=== PATIENT | male | born 1950 | race Caucasian/White ===

== ENCOUNTER 2017-01-11 14:45 | Inpatient (IN) ==
--- NOTE | 2017-01-11 15:51 | EKG Report ---
Test Performed on : 01/11/2017 3:40:26 PM Test Reason : sob Blood Pressure : / mmHG Vent. Rate : 088 BPM Atrial Rate : 088 BPM P-R Int : 204 ms QRS Dur : 100 ms QT Int : 404 ms P-R-T Axes : 025 -08 088 degrees QTc Int : 488 ms Normal sinus rhythm. Nonspecific T wave abnormality Prolonged QT Abnormal ECG When compared with ECG of 07-AUG-2015 22:39, Nonspecific T wave abnormality no longer evident in Inferior leads Unconfirmed Result
[2017-01-11] MEDS ORDERED: ASPIRIN PO STA (16:12)
--- NOTE | 2017-01-11 16:33 | Diag Imaging Result Doc PS360 ---
EXAM: CHEST-PORTABLE HISTORY: sob/cp TECHNIQUE: Portable upright AP COMPARISON: 08/12/2015 FINDINGS: The heart remains enlarged. There is a small to moderate-sized right-sided pleural effusion similar to the prior study. Pulmonary vessels aren't distended. There is basilar atelectasis. IMPRESSION: Cardiomegaly with pulmonary edema and a right-sided effusion consistent with congestive failure. Electronically signed by Weston Nunez 01/11/2017 4:31 PM
[2017-01-11 16:35] LABS: MANUAL DIFF NEEDED? NO
[2017-01-11 16:48] LABS: BASO% 1.5 % (0.0-0.8); EOS# 1.14 X1000 (0.0-0.7); HEMATOCRIT 38.6 % (42.0-52.0); HEMOGLOBIN 12.6 g/dL (14.0-18.0); LYMPH# 0.64 X1000 (1.2-3.4); LYMPH% 6.8 % (20.5-51.1); MCH 29.5 PG (27-31); MCHC 32.6 g/dL (33-37); MCV 90.4 FL (81-99); MONO# 0.72 X1000 (0.11-0.59); MONO% 7.6 % (1.7-9.3); MPV 8.9 FL (7.4-10.4); NEUT% 72.1 % (42.2-75.2); PLT 266 X1000 (130-400); RBC 4.27 XMIL (4.7-6.1)
[2017-01-11 16:56] LABS: INR 1.11; PROTIME 11.7 Seconds (9.2-11.7)
[2017-01-11 17:13] LABS: ALBUMIN 3.8 g/dL (3.5-5.0); POTASSIUM 4.5 mmol/L (3.5-5.1); TOTAL BILIRUBIN 0.76 mg/dL (0.20-1.00); TOTAL PROTEIN 7.3 g/dL (6.3-8.3)
--- NOTE | 2017-01-11 17:30 | PROVIDER DOCUMENTATION ---
This chart was entered by Matthew Canseco Scribe, acting as scribe for Dragan Wallace MD. HPI-Respiratory General - General Chief Complaint: Shortness of Breath Stated Complaint: FLUID RETENTION Time Seen by Provider: 01/11/17 15:55 Source: patient Allergies/Adverse Reactions: Patient Allergies Allergy/AdvReac Type Severity Reaction Status Date / Time No Known Allergies Allergy Verified 04/01/15 10:22 Home Medications: Home Medication List Medication Instructions Recorded Confirmed Last Taken Type Aspirin 81 mg PO DAILY 11/04/13 04/03/15 04/03/15 06:00 History Captopril 50 mg PO TID 11/04/13 04/03/15 04/03/15 06:00 History Clonidine [Catapres] 0.2 mg PO TID 11/04/13 04/03/15 04/03/15 06:00 History Hydroxyzine HCl 25 mg PO DAILY 11/04/13 04/03/15 04/02/15 08:00 History [place]-3 Fatty Acids [Fish Oil] 1 tab PO DAILY 11/04/13 04/03/15 04/02/15 08:00 History PRAVAstatin [Pravachol] 40 mg PO DAILY 11/04/13 04/03/15 04/02/15 08:00 History Sevelamer Carbonate [Renvela] 1,600 mg PO TID 02/11/14 04/03/15 04/02/15 20:00 History Gabapentin 300 mg PO BID 04/01/15 04/03/15 04/02/15 20:00 History Amlodipine [Norvasc] 10 mg PO DAILY #90 tablet 08/13/15 Unknown Rx - History of Present Illness-Resp Nature of Presenting Problem: Patient is a 66 y/o M that presents with progressive shortness of breath x 5 days. Sent here by for evaluation and possible admission. patient has ESRD and does dialysis Tues, Thurs, and Sat. Has same history with fluid in lungs. No fever/chills, chest pain. Gradual weakness has occurred over the past few weeks. Quality of Pain: reports: fullness Severity in ED: reports: moderate Onset/Duration: reports: gradual, 5 days ago Timing: reports: still present, getting worse Context: denies: recent URI, sports/exercise Cough Quality/Degree: reports: moderate, productive cough Episode Frequency: frequent episodes Current Respiratory Medication Therapy: Initiated see nurses note Modifying Factors: worse with: exertion, coughing Associated Symptoms: reports: cough, shortness of breath, short of breath. denies: fever/chills, flu-like symptoms, headache, nasal congestion, nasal drainage, wheezing Similar Symptoms Previously?: Yes Recently seen or treated by another doctor?: Yes Review of Systems - Adult - REVIEW OF SYSTEMS - ADULT Constitutional: denies: chills, fever Eyes: reports: no symptoms reported Ears, Nose, Mouth & Throat: reports: no symptoms reported Cardiovascular: reports: edema. denies: chest pain, orthopnea, palpitations Respiratory: reports: cough, shortness of breath. denies: wheezing Gastrointestinal: denies: abdominal pain, diarrhea, nausea, vomiting Genitourinary: reports: no symptoms reported Musculoskeletal: reports: no symptoms reported Integumentary: reports: no symptoms reported Neurological: reports: no symptoms reported Psychiatric: reports: no symptoms reported Endocrine: reports: no symptoms reported Hematologic/Lymphatic: reports: no symptoms reported Allergic/Immunologic: reports: no symptoms reported All Other Systems: Reviewed and Negative Past History - Adult - PAST MEDICAL HISTORY-ADULT Review of Records: reports: Old Records Reviewed, Nursing Assessment Review, Medications Reviewed Cardiovascular: reports: HTN Genitourinary: reports: dialysis (T,Th, Sat), ESRD Musculoskeletal: reports: arthritis Psychiatric: reports: other (MR) Endocrine/Immune: reports: other (ESRD/ hospitalized for hypoglycemia in December/ glipizide decreased from 10 to 2.5 mg) - PRIOR SURGERIES/PROCEDURES Surgical/Procedure History: reports: indwelling device (av fistula) - IMMUNIZATION STATUS Childhood Immunizations: See Nurse Assessment Flu Vaccine: See Nurse Assessment - FAMILY HISTORY Family History: reviewed, not pertinent - SOCIAL HISTORY Smoking: non-smoker Living Situation: family Physical Exam-General - PHYSICAL EXAM-ADULT Initial Vital Signs Reviewed: Yes - CONSTITUTIONAL General Appearance: alert, mild distress, moderate distress, other (ill appearing) - EYES Eyes: PERRL/EOMI, pink conjunctivae - HEAD, EARS, NOSE, MOUTH & THROAT HENMT: normocephalic/atraumatic, moist mucous membranes, normal ENT inspection - NECK Neck: full range of motion, normal inspection - RESPIRATORY Respiratory: no respiratory distress, no accessory muscle use, rales (at bases bilateraly) - CARDIOVASCULAR Cardiovascular: regular rate, rhythm, no edema - GASTROINTESTINAL (ABDOMEN) Abdominal Exam: normal bowel sounds, non tender, soft - MUSCULOSKELETAL Extremity: normal range of motion, normal inspection, no pedal edema - SKIN Integumentary: normal color, warm/dry - NEUROLOGIC Neurologic: activity therapy specialist II-XII nml as tested, no motor/sensory deficits - PSYCHIATRIC Psych/Mental Status: normal mood/affect, normal thought content, normal thought process, oriented x 3 Progress - PLAN OF CARE/RESULTS Progress/Plan/Lab Results: Vital Signs - 8 hr 01/11/17 15:28 Temperature 97.9 F Pulse Rate 88 Respiratory Rate 20 Blood Pressure 196/86 O2 Sat by Pulse Oximetry 94 L Laboratory Results - last 24 hr 01/11/17 01/11/17 01/11/17 16:12 16:12 16:12 WBC 9.47 RBC 4.27 L Hgb 12.6 L Hct 38.6 L MCV 90.4 MCH 29.5 MCHC 32.6 L RDW Std Deviation 18.0 H Plt Count 266 MPV 8.9 Immature Gran % (Auto) 0.0 Neut % (Auto) 72.1 Lymph % (Auto) 6.8 L Wood % (Auto) 7.6 Eos % (Auto) 12.0 H Baso % (Auto) 1.5 H Immature Gran # (Auto) 0.00 Neut # (Auto) 6.83 H Lymph # (Auto) 0.64 L Wood # (Auto) 0.72 H Eos # (Auto) 1.14 H Baso # (Auto) 0.14 PT 11.7 INR 1.11 PTT (Actin FS) 28.0 Sodium 136 Potassium 4.5 Chloride 90 L Carbon Dioxide 24 L Anion Gap 22 BUN 28 H Creatinine 4.9 H Estimated GFR/1.73 m2 12 BUN/Creatinine Ratio 6 Glucose 91 Calculated Osmolality 277 Calcium 9.0 Magnesium 2.0 Total Bilirubin 0.76 AST 33 ALT 15 Alkaline Phosphatase 229 H Creatine Kinase 92 Troponin T Total Protein 7.3 Albumin 3.8 Globulin 3.5 Albumin/Globulin Ratio 1.1 01/11/17 16:12 WBC RBC Hgb Hct MCV MCH MCHC RDW Std Deviation Plt Count MPV Immature Gran % (Auto) Neut % (Auto) Lymph % (Auto) Wood % (Auto) Eos % (Auto) Baso % (Auto) Immature Gran # (Auto) Neut # (Auto) Lymph # (Auto) Wood # (Auto) Eos # (Auto) Baso # (Auto) PT INR PTT (Actin FS) Sodium Potassium Chloride Carbon Dioxide Anion Gap BUN Creatinine Estimated GFR/1.73 m2 BUN/Creatinine Ratio Glucose Calculated Osmolality Calcium Magnesium Total Bilirubin AST ALT Alkaline Phosphatase Creatine Kinase Troponin T 0.089 Total Protein Albumin Globulin Albumin/Globulin Ratio Orders Category Date Time Status Cardiac Monitoring DIRECTED Care 01/11/17 16:13 Active Oxygen Therapy- ED Nursing DIRECTED Care 01/11/17 16:13 Active Saline Loc NOW Care 01/11/17 16:13 Active CHEST-PORTABLE [RAD] Stat Exams 01/11/17 16:15 Completed CBC WITH ELECTRONIC DIFF [HEME] Stat Lab 01/11/17 16:12 Completed CK PROFILE [SP CHEM] Stat Lab 01/11/17 16:12 Completed COMPREHENSIVE METABOLIC PANEL [CHEM] Stat Lab 01/11/17 16:12 Completed MAGNESIUM [CHEM] Stat Lab 01/11/17 16:12 Completed PRO B-NATRIURETIC PEPTIDE Stat Lab 01/11/17 16:12 Received PROTIME WITH INR [COAG] Stat Lab 01/11/17 16:12 Completed PTT [COAG] Stat Lab 01/11/17 16:12 Completed TROPONIN T Stat Lab 01/11/17 16:12 Completed Aspirin Med 01/11/17 16:12 Discontinued 325 mg PO STAT STA EKG [EKG] Stat Ther 01/11/17 15:32 Draft EKG [EKG] Stat Ther 01/11/17 16:13 Ordered Result Diagrams: 01/11/17 16:12 01/11/17 16:12 - EKG 1 Time of EKG reading by physician:: 15:40 EKG Read and Signed by:: Dragan Wallace EKG Interpretation (*Must complete 3 of following elements*): Abnormal Rate: 88 Rhythm: NSR [place]: normal QRS: normal [place] Interval: normal ST Wave: non-specific ST changes - XRAY 1 XRAY Study: Chest Impression: Abnormal XRAY Interpretation: CMG with pulmonary edema and right-sided effusion - CONSULTS/PCP/HOSPITALIST Notification #1 *Consult/PCP/Hospitalist*: ( invoice control clerk for ) Time Discussed: 17:19 Reason/Comments: CHF,ESRD with dialysis Consult Disposition: Admit Departure - Departure Date of Disposition Decision: 01/11/17 (n) Time of Disposition Decision: 17:20 DIAGNOSIS: ESRD on dialysis CHF (congestive heart failure) Qualifiers: Congestive heart failure type: unspecified congestive heart failure type Congestive heart failure chronicity: unspecified congestive heart failure chronicity Qualified Code(s): I50.9 - Heart failure, unspecified Dyspnea Qualifiers: Dyspnea type: shortness of breath Qualified Code(s): R06.02 - Shortness of breath Pulmonary edema Qualifiers: Chronicity: acute Qualified Code(s): J81.0 - Acute pulmonary edema Disposition: ADMITTED INPATIENT 09 Certified Medical Emergency: Emergent Condition: Stable Referrals and Follow-Ups: Ledy Doyle MD [Primary Care Provider] - - Critical Care Note This patient required my direct & personal management of CC.: No This chart was documented by the indicated scribe, (Matthew Canseco, Scribe) and accurately reflects the services I performed and decisions made by me, Dragan Wallace MD, as attested by the provider's signature.
[2017-01-11] MEDS ORDERED: APRESOLINE IV PRN (18:26)
[2017-01-11] MEDS ORDERED: CAPTOPRIL 50 MG PO SCH (19:41)
[2017-01-11] MEDS ORDERED: SEVELAMER CARBONATE 1600 MG PO SCH (19:41)
[2017-01-11 20:27] LABS: ALLEN TEST YES; BE 3.2 mmoll (-3.0-3.0); BLOOD TYPE ARTERIAL; DRAW SITE R RADIAL; METHB 1.3 % (0.0-1.5); MODALITY CANNULA; O2(CT) 15.5 mL/dL (15.0-23.0); PCO2(98.6) 42 mmHg (35-45); PO2(98.6) 66 mmHg (60-100); SAMPLE BLOOD; SAO2 94.5 % (95.0-100.0); THB 12.1 g/dL (11.5-17.4); pH(98.6) 7.43 (7.35-7.45)
[2017-01-11] MEDS ORDERED: RENAGEL PO ONE (21:00)
[2017-01-11] MEDS ORDERED: CATAPRES PO SCH (21:00)
[2017-01-11] MEDS ORDERED: NEURONTIN PO SCH (21:00)
[2017-01-11] MEDS: NEURONTIN PO SCH (21:05)
[2017-01-11] MEDS: CATAPRES PO SCH (21:05)
[2017-01-11] MEDS: CAPOTEN PO SCH (21:05)
[2017-01-11 21:19] LABS: MANUAL DIFF NEEDED? NO
[2017-01-11 21:22] LABS: BASO% 1.8 % (0.0-0.8); EOS% 14.5 % (0.0-10.0); HEMATOCRIT 37.3 % (42.0-52.0); HEMOGLOBIN 12.3 g/dL (14.0-18.0); IMM GRAN# 0.02 X1000 (0.0-0.04); IMM GRAN% 0.2 % (0.0-0.5); LYMPH# 0.51 X1000 (1.2-3.4); LYMPH% 6.2 % (20.5-51.1); MCH 29.7 PG (27-31); MCV 90.1 FL (81-99); MONO% 7.2 % (1.7-9.3); MPV 8.4 FL (7.4-10.4); NEUT% 70.1 % (42.2-75.2); PLT 245 X1000 (130-400); RBC 4.14 XMIL (4.7-6.1)
[2017-01-11 21:29] LABS: INR 1.12; PROTIME 11.8 Seconds (9.2-11.7)
[2017-01-11 21:36] LABS: HEMOGLOBIN A1C 4.6 % (4.8-6.0)
[2017-01-11 22:19] LABS: CALCIUM 8.5 mg/dL (8.8-10.2)
--- NOTE | 2017-01-11 22:25 | HISTORY AND PHYSICAL ---
CHIEF COMPLAINT: Shortness of breath, PND, orthopnea, swelling of feet. HISTORY OF PRESENT ILLNESS: He is a 66-year-old white gentleman was evaluated in our office this afternoon with above symptoms. Patient was found to have decreased breath sounds in the right base. Chest x-ray showed moderate pleural effusion on the right side. He was admitted to the hospital with decompensated congestive heart failure. He has 2+ pedal edema. I did discuss with Dr. Kahn who is out of town. Basically admitted to the hospital for dialysis to remove fluid. Will discuss with the nurse practitioner tomorrow. PAST MEDICAL HISTORY: Type 2 diabetes, end-stage kidney disease on dialysis, acid reflux disease, hyperlipidemia, hypertension, borderline mental retardation, macular retinal degeneration, insomnia. PAST SURGICAL HISTORY: Tonsillectomy, appendectomy, status post circumcision, bilateral cataract surgery, right arm AV fistula graft. MEDICINES: Amlodipine 5 mg daily, aspirin 80 mg daily, BuSpar 10 mg p.o. b.i.d., captopril 50 mg 3 times daily, clonidine 0.2 three times daily, hydroxyzine 25 daily, Neurontin 300 three times daily, pravastatin 40 daily, Renvela 80 mg 3 times daily, Rocaltrol 0.25 mcg daily, TobraDex as needed. ALLERGIES: Not known. SOCIAL HISTORY: Single, lives with mother, disabled. FAMILY HISTORY: Mom is alive at 86-year-old, father of natural causes. REVIEW OF SYSTEMS: HEENT: No headache. No vision problem. No earache. No sore throat. Neck: No goiter. No lymphadenopathy. No bruit. Cardiopulmonary: No chest pain, shortness of breath, PND, orthopnea, swelling of feet. GI: No nausea, vomiting, abdominal pain. : No history of hesitancy, frequency. Neurological: No focal symptoms or weakness. PHYSICAL EXAMINATION: VITAL SIGNS: Is afebrile, blood pressure is slightly high, 5 feet 10, 157 pounds. HEENT: Atraumatic, normocephalic. Pupils equal, react to light. TMs are normal. Nose and throat within normal limits. JVD is elevated. LUNGS: Decreased breath sounds in the right base. HEART: Sounds are regular. BELLY: Is soft, nontender. Good bowel sounds. No masses palpable. EXTREMITIES: One plus pedal edema in both legs. AV graft is palpable in right forearm. NEURO: No obvious neurological deficits. Patient was seen in the wheelchair. INVESTIGATIONS: CBC: White cell count 8.2, hematocrit 37, platelets 245,000. PT 11, INR 1.1. ABG pH is 7.43, pCO2 42, PO2 62 on 2 L. SMA 7, sodium 136 potassium 4.5, chloride 90, BUN 28, creatinine 4.9. A1c 4.6. LFTs were normal. Alkaline phosphatase slightly high, proBNP 35,000, CK is normal. ASSESSMENT AND PLAN: 1. A 66-year-old white gentleman with a known history of hypertension, heart disease admitted to the hospital with congestive heart failure, elevated proBNP, right pleural effusion. Since he is end-stage kidney disease he needs an extra hemodialysis. Discussed with Dr. Kahn. 2. Hypertension on amlodipine, captopril, clonidine and will use hydralazine as needed. 3. Chronic anxiety on BuSpar 10 mg p.o. b.i.d. 4. Hyperlipidemia on Pravachol. 5. Hyperphosphatemia on Renagel and will follow up. cc: Jm Doyle MD
[2017-01-12 05:21] LABS: CALCIUM 8.3 mg/dL (8.8-10.2); POTASSIUM 4.3 mmol/L (3.5-5.1)
--- NOTE | 2017-01-12 06:43 | EKG Report ---
Test Performed on : 01/11/2017 8:30:39 PM Test Reason : chest pain Blood Pressure : / mmHG Vent. Rate : 086 BPM Atrial Rate : 086 BPM P-R Int : 202 ms QRS Dur : 102 ms QT Int : 406 ms P-R-T Axes : 028 007 073 degrees QTc Int : 485 ms Normal sinus rhythm. Nonspecific T wave abnormality Prolonged QT Abnormal ECG When compared with ECG of 11-JAN-2017 15:40, (Unconfirmed) No significant change was found Confirmed by Virgie Das MD ([id number]) on 01/12/2017 4:40:55 PM
[2017-01-12] MEDS ORDERED: TIGHT: 0.2 ML/HR MISC PRN (07:31)
[2017-01-12] MEDS ORDERED: NS 2,000 ML MISC PRN (07:31)
[2017-01-12] MEDS ORDERED: HEPARIN IV PRN (07:31)
[2017-01-12] MEDS ORDERED: HEPARIN ONE ×2 (08:26→13:08)
[2017-01-12] MEDS ORDERED: NS 2,000 ML ONE ×2 (08:26→13:09)
[2017-01-12] MEDS: NORVASC PO SCH (08:43)
[2017-01-12] MEDS: FISH OIL CONCENTRATE PO SCH (08:43)
[2017-01-12] MEDS: HYDROXYZINE PO SCH (08:43)
[2017-01-12] MEDS: ASPIRIN PO SCH (08:44)
[2017-01-12] MEDS: CAPOTEN PO SCH ×3 (08:44→21:30)
[2017-01-12] MEDS: CATAPRES PO SCH ×3 (08:44→21:30)
[2017-01-12] MEDS: RENAGEL PO SCH ×3 (08:45→18:00)
[2017-01-12] MEDS: NEURONTIN PO SCH ×2 (08:45→21:30)
[2017-01-12] MEDS: PRAVACHOL PO SCH (08:45)
[2017-01-12] MEDS ORDERED: PRAVACHOL PO SCH (09:00)
[2017-01-12] MEDS ORDERED: NORVASC PO SCH (09:00)
--- NOTE | 2017-01-12 11:09 | PROGRESS NOTE ---
DATE: 01/12/2017 SUBJECTIVE: The patient is resting very well and denies any shortness of breath. REVIEW OF SYSTEMS: None reported. OBJECTIVE: Vital Signs: Temperature is 97 degrees, blood pressure is 180/85, 157 pounds, on 3L nasal cannula. HEENT: Within normal limits. Chest: Decreased breath sounds in the right base. Heart: Sounds are regular. Abdomen: Belly is soft, nontender. Good bowel sounds. Extremities: 1+ pedal edema noted. INVESTIGATIONS: Chest x-ray: Right pleural effusion. Creatinine 6.0. proBNP was high. ASSESSMENT AND PLAN: 1. Congestive heart failure. Last echocardiography on 08/08/2015. Ejection fraction is 55% with significant pulmonary hypertension noted. Continue control of blood pressure and she is going to dialysis today. 2. Hypertension. Continue on Captopril, clonidine, and hydralazine as needed. 3. Hyperlipidemia, on Pravachol. 4. Diabetes, controlled with diet. LEVEL OF DOCUMENTATION: Twenty-five minutes. PLAN: I will follow up. cc: Jm Doyle MD
--- NOTE | 2017-01-12 14:55 | CONSULTATION ---
DATE OF CONSULTATION: 01/12/2017 REASON FOR ADMISSION: Increased work of breathing with swelling of feet. TIME SEEN: 809 CONSULTING PHYSICIAN: Dr. Doyle. HPI: Mr. Bartholomew is a 66-year-old white male who is known to our outpatient services for hemodialysis on Wednesday, , Wednesday at the [facility]. Patient lives with his sister and his mother. He is mentally handicapped. He does tolerate dialysis well. It is difficult for him to understand fluid restrictions. Subsequently sister is at his bedside at this time. It is indicated that he does not have any chest pain. He was found to have increased work of breathing. He was seen at Dr. Doyle's office yesterday afternoon and was forwarded to [facility] for further evaluation and workup. Chest x-ray had indicated moderate pleural effusion on the right side. He was noted to have decompensated congestive heart failure with 2+ pedal edema. We will plan for dialysis today to assist with his fluid volume load. Patient currently denies any chest pain. No increased work of breathing. No nausea, vomiting, no diarrhea. No palpitations. No fever or chills. PAST MEDICAL HISTORY: End-stage renal disease with hemodialysis on Wednesday, , Wednesday, type 2 diabetes, acid reflux, hyperlipidemia, hypertension, borderline mental handicap, macular retinal degeneration, insomnia, anemia of chronic disease, osteodystrophy of chronic disease. PREVIOUS SURGICAL HISTORY: He has had a tonsillectomy, appendectomy, status post circumcision, bilateral cataract surgery, right forearm AV fistula. SOCIAL HISTORY: Patient is single. He lives with his mother and sister. He is disabled. No alcohol, tobacco or illicit drug use. FAMILY HISTORY: Mother is fairly healthy with noted hypertension. Father of natural causes. Sister assists with his care. CURRENT ALLERGIES: No known drug allergies. HOME MEDICATIONS: Amlodipine, aspirin, BuSpar, captopril, clonidine, hydroxyzine, Neurontin, pravastatin, Renvela, Rocaltrol, TobraDex, patient also receives , Aranesp and IV iron as indicated at the outpatient clinic. VITAL SIGNS: Temperature 98.4 degrees, blood pressure 184/87, heart rate 82, respirations 18. He is on 2 L nasal cannula. Last recorded saturation is 94%. He has had 360 in. He has had 0 out. LAB: Sodium 138, potassium 4.3, chloride 93, CO2 27, BUN 36, creatinine 6, glucose 101, anion gap 18, calcium 8.3, albumin 3.8, TSH 3.73. White count 8.29, hemoglobin 12.3, hematocrit 37.3 with a platelet count of 245,000. His PT is 118, INR 1.12, PTT 28.0. BNP greater than 35,000. ABGs pH 7.43, CO2 42, PO2 66, bicarb 27.3 on 2 L. Chest x-ray as mentioned above. PHYSICAL EXAMINATION: General: This is a 66-year-old white male. He is currently resting in bed. He is in no acute distress. He is sitting up. He is eating his breakfast. He is tolerating this well. HEENT: Normocephalic, atraumatic. Conjunctiva is pale. He has PERAL. Mucous membranes are moist. Neck: Supple. Trachea midline. Trace JVD. Cardiovascular: He is regular rate and rhythm. He has a systolic murmur. No gallop. Lungs: Clear to auscultation bilateral anteriorly, diminished posterior bases right greater than left. Patient remains on O2 equal excursion. Abdomen: Soft, nontender. Positive bowel sounds. Extremities: Has 1+ lower extremity edema bilateral with an AV graft to the right forearm palpable with good thrill. Neurological: He is alert and oriented to person, to place and most recent events. ASSESSMENT AND PLAN: 1. End-stage renal disease. This is patient's routine dialysis treatment. Patient is in fluid volume overload. We will place him on a 2 K bath. He is to dialyze for 3-1/2 hours. We will attempt to challenge his dry weight by approximately 2 kg and then reset for outpatient. 2. Fluid volume overload. Patient has an elevated BNP with a right pleural effusion. Again, we will challenge his dry weight on dialysis today. 3. Electrolytes. These remain stable. 4. Acid-base balance. This is stable. 5. Anemia. This is at target. I would like to thank you for allowing us to follow with this patient. Dictated by GHANSHYAM Last for Joshua Kahn MD cc: GHANSHYAM Last MD Jm Doyle, MD
[2017-01-13 05:31] LABS: POTASSIUM 4.3 mmol/L (3.5-5.1)
[2017-01-13] MEDS: RENAGEL PO SCH ×3 (08:05→17:48)
[2017-01-13] MEDS: NORVASC PO SCH (08:05)
[2017-01-13] MEDS: ASPIRIN PO SCH (08:05)
[2017-01-13] MEDS: CAPOTEN PO SCH ×3 (08:06→20:45)
[2017-01-13] MEDS: NEURONTIN PO SCH ×2 (08:06→20:45)
[2017-01-13] MEDS: FISH OIL CONCENTRATE PO SCH (08:06)
[2017-01-13] MEDS: HYDROXYZINE PO SCH (08:06)
[2017-01-13] MEDS: CATAPRES PO SCH ×3 (08:06→20:45)
[2017-01-13] MEDS: PRAVACHOL PO SCH (08:06)
--- NOTE | 2017-01-13 08:41 | Diag Imaging Result Doc PS360 ---
CHEST-2 VIEWS - 01/13/2017 INDICATION: SOB TECHNIQUE: COMPARISON: 01/11/2017 FINDINGS: There is perhaps slight worsening in central mixed, predominantly alveolar infiltrates right greater than left. The appearance suggests pulmonary edema. Otherwise, stable cardiomegaly and severe pulmonary vascular congestion. Stable pleural effusions right greater than left. There is a small to moderate pleural effusion on the right. IMPRESSION: Slight worsening in pulmonary edema/volume overload. Electronically signed by Herson Naylor 01/13/2017 8:39 AM
--- NOTE | 2017-01-13 09:02 | PROGRESS NOTE ---
DATE: 01/13/2017 SUBJECTIVE: The patient had dialysis yesterday, removed 6 L of fluid. He appears to be euvolemic. He denies of any chest pain, shortness of breath. Caregiver was sleeping at bedside. Swelling of legs much improved. REVIEW OF SYSTEMS: None reported. PHYSICAL EXAMINATION: Vital Signs: Afebrile, 148 pounds, 2 L nasal cannula. General: The patient does not appear to be in respiratory distress. Lungs: Decreased breath sounds in the right base. Heart: Heart sounds are regular. Abdomen: Belly is soft, nontender. Good bowel sounds. Extremities: Decreased in the pedal edema in both legs. LABORATORY DATA: SMA 7: Sodium 137, potassium 4.3, chloride 96, BUN 28, creatinine 4.8, calcium 8. ASSESSMENT AND PLAN: 1. Congestive heart failure, decompensated diastolic dysfunction based on the previous echocardiogram and removed 6 L, clinically euvolemic. Control the blood pressure and repeat the chest x-ray. Follow up on the pleural effusion on the right side. If he continues to improve, he will be discharged in the morning after dialysis. 2. Hypertension, on amlodipine 10 mg daily, captopril 50 twice a day, clonidine 0.2 three times a day, hydralazine 10 as needed. We will follow up. cc: Jm Doyle MD
[2017-01-13] MEDS ORDERED: TIGHT: 0.2 ML/HR MISC PRN (09:46)
[2017-01-13] MEDS ORDERED: NS 2,000 ML MISC PRN (09:46)
[2017-01-13] MEDS ORDERED: HEPARIN IV PRN (09:46)
[2017-01-13] MEDS ORDERED: HEPARIN ONE (10:09)
[2017-01-13] MEDS ORDERED: NS 2,000 ML ONE (10:10)
--- NOTE | 2017-01-13 15:16 | PROGRESS NOTE ---
DATE: 01/13/2017 SUBJECTIVE: Mr. Bartholomew is sitting up in bed. He is eating his breakfast. He denies any pain. No increased work of breathing. He thinks he is feeling just a little bit better. OBJECTIVE: Vital signs: Most recent temperature 98.2 degrees, blood pressure 166/85, heart rate 77, respirations 20. He is on 2 L nasal cannula. Last recorded saturation is 97%. He has had 1480 in, he has had 6000 out, 6 L on dialysis. LABS: Sodium 137, potassium 4.3, chloride 96, CO2 29, BUN 28, creatinine 4.8, glucose 94, anion gap 12, calcium 8, previous hemoglobin 12.3 on the . PHYSICAL EXAMINATION: General: This is a 66-year-old white male. He is currently resting in bed. He is in no acute distress. Skin: Warm and dry. HEENT: Normocephalic, atraumatic. Conjunctivae pale. PERRL. Mucous membranes are moist. Neck: Supple. Trachea midline. No JVD. Cardiovascular: Regular rate and rhythm. He has a soft murmur. No gallop. Lungs: Clear to auscultation anteriorly. Equal excursion. Diminished breath sounds posterior right base. He remains on O2. Abdomen: Round, soft, nontender. Positive bowel sounds. Genitourinary: Not inspected. Minimal void with dialysis assist. Integumentary: No rashes or lesions noted. Extremities: He has 1+ lower extremity edema. AV graft to the left forearm palpable with good thrill. Neurological: Alert and oriented x2. ASSESSMENT AND PLAN: 1. End-stage renal disease. Patient had his routine dialysis treatment yesterday. Chest x-ray indicates that he has a right pleural effusion today. We will plan for an extra 2 hour treatment of ultrafiltration of 2 L and plan for a routine dialysis treatment in the morning again to challenge his dry weight. 2. Fluid volume overload. Again as mentioned, right pleural effusion with extra treatment today of ultrafiltration. 3. Electrolytes, acid-base balance and anemia. These remain stable. I would to thank you for allowing us to follow with this patient. Dictated by GHANSHYAM Last for Joshua Kahn MD cc: GHANSHYAM Last MD Jagan Reddy, MD
[2017-01-14 05:36] LABS: CALCIUM 8.1 mg/dL (8.8-10.2); POTASSIUM 4.9 mmol/L (3.5-5.1)
[2017-01-14] MEDS ORDERED: NS 2,000 ML ONE (06:43)
[2017-01-14] MEDS ORDERED: HEPARIN ONE (06:43)
[2017-01-14] MEDS ORDERED: NS 2,000 ML MISC PRN (07:59)
[2017-01-14] MEDS ORDERED: HEPARIN IV PRN (07:59)
[2017-01-14] MEDS ORDERED: TIGHT: 0.2 ML/HR MISC PRN (07:59)
[2017-01-14] MEDS: FISH OIL CONCENTRATE PO SCH (08:02)
[2017-01-14] MEDS: NEURONTIN PO SCH ×2 (08:03→20:13)
[2017-01-14] MEDS: PRAVACHOL PO SCH (08:03)
[2017-01-14] MEDS: CAPOTEN PO SCH ×3 (08:03→20:13)
[2017-01-14] MEDS: NORVASC PO SCH (08:03)
[2017-01-14] MEDS: ASPIRIN PO SCH (08:03)
[2017-01-14] MEDS: RENAGEL PO SCH ×4 (08:03→20:13)
[2017-01-14] MEDS: HYDROXYZINE PO SCH (08:03)
[2017-01-14] MEDS: CATAPRES PO SCH ×3 (08:03→20:13)
--- NOTE | 2017-01-14 08:29 | PROGRESS NOTE ---
DATE: 01/14/2017 SUBJECTIVE: The patient is doing very well this morning. Denies any PND or orthopnea. He is a poor historian. Caregiver was sleeping at bedside. A chest x-ray yesterday was worsening. He does not take home oxygen. He requiring 2 L of nasal cannula. REVIEW OF SYSTEMS: None reported. I's and O's are so far negative 6 L. OBJECTIVE: Chest: Decreased breath sounds in the right side. Heart: Sounds are regular. Vital signs: Blood pressure is 160/81. Weight 149 pounds. Extremities: No peripheral edema. ASSESSMENT AND PLAN: 1. Congestive heart failure diastolic dysfunction with right pleural effusion, worsening and going for hemodialysis. 2. Blood pressure is well controlled on amlodipine, captopril, clonidine, and hydralazine as needed. Based on the x-ray and clinical picture, discharge plans will be arranged. Follow up on dialysis today. cc: Jm Doyle MD MTDD
--- NOTE | 2017-01-14 13:26 | PROGRESS NOTE ---
DATE: 01/14/2017 DATE SEEN: 01/14/2017 TIME SEEN: 08:15 SUBJECTIVE: Mr. Bartholomew is resting quietly in bed. He is eating his breakfast. He denies chest pain or increased work of breathing. OBJECTIVE: Vital Signs: Most recent vital signs, temperature 97.5 degrees, blood pressure 167/81, heart rate 64, respirations 18. He is on room air at this time. Last recorded saturation is 100% on 2 L. He has had 840 in. He has had 2 L removed on dialysis yesterday. LABS: Sodium 136, potassium 4.9, chloride 95, CO2 25, BUN 40, creatinine 5.8, glucose 109. Anion gap 13, calcium 8.1, previous hemoglobin 12.3 on the 10th. PHYSICAL EXAMINATION: General: This is a 66-year-old white male. He is currently resting in bed. He is in no acute distress. Skin: Warm and dry. HEENT: Normocephalic, atraumatic. Conjunctivae pale. He has pupils equal, round, and reactive to light. Mucous membranes moist. Neck: Supple. Trachea midline. No jugular venous distention. Cardiovascular: Regular rate and rhythm. Soft systolic murmur. No gallop appreciated. Lungs: Clear to auscultation anteriorly. Equal excursion on room air. Abdomen: Round, soft, nontender. Positive bowel sounds. Extremities: Have trace pretibial edema. These are improved from yesterday, with an AV fistula to the left upper forearm. Neurological: He is alert to person and to place. Integumentary: No rashes or lesions noted. ASSESSMENT AND PLAN: 1. End-stage renal disease. Patient is due for his routine dialysis treatment today. We will place him on a 2K bath. He is to dialyze for 3.5 hours. We will attempt to challenge his dry weight from his previous weight removal yesterday. 2. Fluid volume overload. Again, we will challenge patient's dry weight. The patient has had a total of 8 L removed off of dialysis in the last 48 hours. Again, we will challenge his dry weight today. 3. Electrolytes and acid-base balance. These are stable. 4. Anemia. This is at target. I would like to thank you for allowing us to follow with this patient. Dictated by GHANSHYAM Last for Joshua Kahn MD cc: GHANSHYAM Last MD Jagan Reddy, MD
[2017-01-15 05:37] LABS: ALBUMIN 2.9 g/dL (3.5-5.0); CALCIUM 7.6 mg/dL (8.8-10.2); POTASSIUM 4.4 mmol/L (3.5-5.1)
[2017-01-15 08:00] VITALS: BP 166/76
--- NOTE | 2017-01-15 08:11 | Diag Imaging Result Doc PS360 ---
EXAM: CHEST-2 VIEWS HISTORY: hypoxia TECHNIQUE: Sitting AP COMPARISON: 01/13/2017 FINDINGS: There are increased interstitial markings in both lungs. Heart is enlarged. There are small bilateral pleural effusions. There is also basilar atelectasis and there may be underlying pneumonia. There are several calcified mediastinal and hilar lymph nodes. Old healed right rib fractures. IMPRESSION: Findings consistent with congestive failure. Electronically signed by Weston Nunez 01/15/2017 8:08 AM
[2017-01-15] MEDS: CAPOTEN PO SCH (08:56)
[2017-01-15] MEDS: HYDROXYZINE PO SCH (08:56)
[2017-01-15] MEDS: CATAPRES PO SCH (08:56)
[2017-01-15] MEDS: NEURONTIN PO SCH (08:56)
[2017-01-15] MEDS: FISH OIL CONCENTRATE PO SCH (08:56)
[2017-01-15] MEDS: ASPIRIN PO SCH (08:56)
[2017-01-15] MEDS: RENAGEL PO SCH (08:57)
[2017-01-15] MEDS: NORVASC PO SCH (08:57)
[2017-01-15] MEDS: PRAVACHOL PO SCH (08:57)
--- NOTE | 2017-01-15 15:40 | ECHO REPORT ---
ORDER DATE: 01/14/2017 ECHOCARDIOGRAM: MEASUREMENTS: Left ventricular end-diastolic diameter 5.4, end systolic diameter 3.7, posterior wall thickness 1.4, septal thickness 1.7, left atrium 5.5, aortic root 3.5. SUMMARY: 1. Fair quality study. 2. Aortic valve appears to be bicuspid with mild sclerotic change. Telemetry of aortic valve opening demonstrates an area of 2.0 cm2. Peak gradient across aortic valve by Doppler is 10 mmHg with a mean gradient of 5 mmHg. Thus there appears to be minimal aortic stenosis. There is moderate thickening with some calcification of the posterior mitral leaflet with diminished mobility of posterior mitral leaflet. Mitral valve opening appears to be adequate with mitral valve area by pressure half-time of 3.8 cm2. The mean gradient across mitral valve is 2 mmHg. There is trace mitral regurgitation. Tricuspid valve is without structural abnormality with mild tricuspid regurgitation. Estimated systolic PA pressure by Doppler is 40-45 mmHg. Tricuspid valve without structural abnormality. The aortic root is normal size. 3. Normal left ventricular chamber size. Left ventricular wall thickness measurements suggest [id number] concentric left hypertrophy. 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 Estimated left ventricular ejection fraction is 40-45%. No focal wall motion abnormalities evident. Left atrium is moderately enlarged. Right atrium and right ventricle are normal size with normal right ventricular systolic function. 4. Small posterior pericardial effusion. 5. Inferior vena cava not well demonstrated. CONCLUSIONS: 1. Probable bicuspid valve without significant stenosis. 2. Mild tricuspid regurgitation with mild pulmonary hypertension by Doppler. 3. 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 Left ventricular ejection fraction 40 45%. 4. Moderate left atrial enlargement. 5. Small posterior pericardial effusion. cc: MD Samia Stevens CRNP Jagan Reddy, MD
--- NOTE | 2017-01-17 04:51 | DISCHARGE SUMMARY ---
ADMISSION DATE: 01/11/2017 DISCHARGE DATE: 01/15/2017 DISCHARGING DIAGNOSIS: Acute decompensated diastolic heart failure with right pleural effusion. SECONDARY DIAGNOSES: 1. Type 2 diabetes. 2. End-stage kidney disease, on dialysis. 3. Acid reflux disease. 4. Hyperlipidemia. 5. Hypertension. 6. Borderline mental retardation. 7. Macular retinal degeneration. CONSULTANTS: Dr. Kahn. PROCEDURE: Inpatient hemodialysis Lost more than 10 pounds. BRIEF HISTORY: Please see the H and P that was done on 01/11/2017. In brief, he is a 66-year- old, white gentleman basically admitted to the hospital with the above problems through my office, shortness of breath, cough, wheezing, and decreased breath sounds in the right base, and swelling of feet. He had elevated proBNP. Chest x-ray, moderate right pleural effusion with pulmonary vascular congestion. He was admitted to the hospital for extra dialysis, removed 10 L. HOSPITAL COURSE: Clinically, the patient is doing very well. He is breathing better. He is euvolemic. No pedal edema. No elevation of JVD. Decreased rales in the right base. Chest x- ray, not significant improvement. The patient's caregiver wants to take him home. He is less symptomatic. The labs during this admission were as follows. CBC: White cell count 8.3, hematocrit 37, platelets 245,000. PT 11, INR 1.1. ABG, pH is 7.43, pCO2 of 42 , PO2 is 66 on 2 L. SMA 7: Sodium 136, potassium 4.4, chloride 96, BUN 37, creatinine 4.4, glucose 102, A1c of 4.6. ProBNP more than 35,000. CK, cardiac enzymes were normal. Thyroid function tests were normal. Chest x-ray, not significant improvement. At the time of discharge, his weight is 143 pounds. Pulse oximetry 97% on room air. The patient's caregiver wants to take him home with the following instructions. DISCHARGE INSTRUCTIONS: Pravastatin 40 mg daily, captopril 50 t.i.d., hydroxyzine 25 daily, clonidine 0.2 t.i.d., Renvela 1600 mg t.i.d., gabapentin 300 b.i.d., amlodipine 10 mg daily, and BuSpar 10 mg daily. Outpatient hemodialysis on Wednesday. Recheck in 10 days in my office for a chest x-ray. Continue to see Dr. Kahn. cc: MD Joshua Penaloza MD MTDD
== END 2017-01-15 09:31 | disposition home or self-care (01) ==
LOC: DIRADM 14:45 → 3S 19:39
PROVIDERS: ADMIT Internal Medicine; ATTEND Internal Medicine